=== PATIENT | female | born 1995 | race Caucasian/White ===

== ENCOUNTER 2020-04-24 10:25 | Day surgery (SDC) | payer OTHER ==
[2020-04-17 11:21] LABS: BASOPHILS % (AUTO) 0.4 % (0-1); EOSINOPHILS # (AUTO) 0.2 X10'3 (0-0.9); EOSINOPHILS % (AUTO) 2.9 % (0-6); LYMPHOCYTES # (AUTO) 1.9 X10'3 (1.1-4.8); MEAN CORPUSCULAR HEMOGLOBIN 30.3 PG (27.0-31.0); MEAN CORPUSCULAR HGB CONC 34.3 g/dL (33.0-36.5); MEAN CORPUSCULAR VOLUME 88.2 FL (78-98); MEAN PLATELET VOLUME 7.7 FL (7.4-10.4); MONOCYTES # (AUTO) 0.6 X10'3 (0-0.9); MONOCYTES % (AUTO) 9.3 % (2-12); NEUTROPHILS # (AUTO) 3.7 X10'3 (1.8-7.7); NEUTROPHILS % (AUTO) 57.4 % (42-75); PRE OP HEMATOCRIT 42.1 % (35.0-45.0); PRE OP HEMOGLOBIN 14.4 g/dL (12.0-16.0); PRE OP PLATELET COUNT 320 X10'3 (140-440); RED BLOOD COUNT 4.77 X10'6 (4.20-5.60); RED CELL DISTRIBUTION WIDTH 13.5 % (11.5-14.5)
[2020-04-17 11:35] LABS: HCG SERUM QL NEGATIVE
[2020-04-17 11:38] LABS: ALBUMIN 3.8 G/DL (3.4-5.0); ALBUMIN/GLOBULIN RATIO 0.9 (1.1-1.5); ALKALINE PHOSPHATASE 106 IU/L (46-116); BLOOD UREA NITROGEN 12 MG/DL (7-18); BUN/CREATININE RATIO 14.6 (6.6-38.0); CHLORIDE 105 MMOL/L (99-107); CREATININE 0.82 MG/DL (0.40-0.90); PRE OP ALT 22 U/L (30-65); PRE OP ANION GAP 11 (8-16); PRE OP AST 15 U/L (10-37); PRE OP BILIRUB, TOTAL 0.4 MG/DL (0.0-1.0); PRE OP GLUCOSE 90 MG/DL (70-104); PRE OP POTASSIUM 3.7 MMOL/L (3.4-5.1); PRE OP SODIUM 140 MMOL/L (135-145); TOTAL CARBON DIOXIDE 23.8 MMOL/L (24-32); TOTAL PROTEIN 7.9 G/DL (6.4-8.2); eGFR 87 ML/MIN
[2020-04-24] VITALS (7 sets, daily range): BP systolic 96–132; BP diastolic 59–77
[~2020-04-24] VITALS: Ht 170.2 cm; Wt 61.0 kg
[~2020-04-24 10:25] MED LIST: BUSP7.5T5 PO; [UNRECOGNIZED DRUG - CODE] PO; ceFOXitin 2GM-NS 100mL ADDvant 100 ML IV ONE; famotidine 20mg tablet PO ONE; ringers solution, lacted 1,000 ML IV SCH
[2020-04-24] MEDS ORDERED: acetaminophen 1,000mg/100ml IV 100 ML IV PRN (14:40)
[2020-04-24] MEDS ORDERED: ondansetron/PF 4mg/2ml inj IV PRN (14:40)
[2020-04-24] MEDS ORDERED: morphine 2 MG/ML inj. syringe IV PRN (14:40)
[2020-04-24] MEDS ORDERED: ringers solution, lacted 1,000 ML IV SCH (14:40)
[2020-04-24] MEDS ORDERED: morphine 4 MG/ML inj SYRINge IV PRN (14:40)
[2020-04-24] MEDS ORDERED: meperidine/PF 25mg/ml syringe IV PRN ×3 (14:40)
[2020-04-24] MEDS ORDERED: proCHLORperazine 10 MG/2 ml inj IV PRN (14:40)
[2020-04-24] MEDS ORDERED: sevoflurane 250ml liquid IH ONE (15:47)
[2020-04-24] MEDS ORDERED: fentaNYL/PF 50MCG/1 ML 2ML syringe ONE (15:54)
[2020-04-24] MEDS ORDERED: midazolam 2 mg/2 ml injection ONE (15:57)
[2020-04-24] MEDS ORDERED: LIDOcaine 1% W/epiNEPHrine 1:200,000 10ml vial ONE (16:18)
[2020-04-24] MEDS ORDERED: acetaminophen 1,000mg/100ml IV 100 ML IV ONE (16:29)
[2020-04-24] MEDS ORDERED: LIDOcaine 1%/PF 5ML 10 MG/ML VIAL ONE (16:30)
[2020-04-24] MEDS ORDERED: propofol inj 20 ML IV ONE (16:30)
[2020-04-24] MEDS ORDERED: ondansetron/PF 4mg/2ml inj ONE (16:30)
[2020-04-24] MEDS ORDERED: dexamethasone sod phosphate 4mg/ml inj. ONE (16:30)
[2020-04-24] MEDS ORDERED: oxyCODONE/APAP 5-325mg tablet PO ONE ×2 (16:50)
--- NOTE | 2020-04-24 16:50 | NUR ---
Received from OR via , accompanied by Anesthesiologist DR GARZA and report given by Anesthesiolgist. AWAKENS TO VOICE. VITALS STABLE. DRESSING DI. SWATI PAIN.
--- NOTE | 2020-04-24 17:50 | NUR ---
AWAKE AND ORIENTED. VITALS STABLE. DRESSING DI. SWATI PAIN. HOME WITH HER MOM AT THIS TIME.
== END 2020-04-24 17:50 | disposition home or self-care (01) ==
LOC: PRE-OP 10:25 → PAS 17:50
PROVIDERS: ATTEND Obstetrics & Gynecology
DX: R10.2 Pelvic and perineal pain (principal); N94.10 Unspecified dyspareunia; Q52.3 Imperforate hymen; N90.89 Other specified noninflammatory disorders of vulva and perineum; S31.41XA Laceration without foreign body of vagina and vulva, initial encounter; F32.9 Major depressive disorder, single episode, unspecified; F41.9 Anxiety disorder, unspecified; Z72.89 Other problems related to lifestyle; Z98.890 Other specified postprocedural states; Z79.899 Other long term (current) drug therapy; Z20.822 Contact with and (suspected) exposure to COVID-19; X58.XXXA Exposure to other specified factors, initial encounter; Y93.89 Activity, other specified; Y92.89 Other specified places as the place of occurrence of the external cause; Y99.8 Other external cause status
CPT/HCPCS: 36415; 56620; 56700; 80053; 82948; 84703; 85025; 86885; 86900; 86901; 87635; J0131; J0694; J1100; J2250; J2405; J2704; J3010; A4618; A7000; J7120

== ENCOUNTER 2021-09-25 23:56 | Emergency (ER) | payer SELFPAY ==
[~2021-09-25] VITALS: Ht 170.2 cm; Wt 68.2 kg
[~2021-09-25 23:56] MED LIST changes: -ceFOXitin 2GM-NS 100mL ADDvant 100 ML IV ONE; -famotidine 20mg tablet PO ONE; -ringers solution, lacted 1,000 ML IV SCH
[2021-09-26 00:04] VITALS: BP 130/89
[2021-09-26] MEDS ORDERED: neomy sulf/polymyx B sulf/HC 10ml otic suspension LEFT EAR ONE (01:00)
[2021-09-27] MEDS ORDERED: AMOX-580 PO (00:53)
[2021-09-27] MEDS ORDERED: CIPR10DR LEFT EAR (00:53)
== END 2021-09-26 01:12 | disposition home or self-care (01) ==
LOC: ER 23:56
DX: H60.502 Unspecified acute noninfective otitis externa, left ear (principal)
CPT/HCPCS: 99283

== ENCOUNTER 2021-09-27 00:13 | Emergency (ER) | payer SELFPAY ==
[~2021-09-27] VITALS: Ht 170.2 cm; Wt 68.2 kg
[2021-09-27] MEDS ORDERED: AMOX-580 PO (00:53)
[2021-09-27] MEDS ORDERED: CIPR10DR LEFT EAR (00:53)
[2021-09-27] MEDS ORDERED: ketorolac trometh. 30mg/ml inj. IM ONE (00:55)
[2021-09-27] MEDS ORDERED: amox tr/potassium clavulanate 875/125mg TAB PO ONE (00:55)
[2021-09-27 02:07] VITALS: BP 135/78
== END 2021-09-27 02:11 | disposition home or self-care (01) ==
LOC: ER 00:14
DX: H60.502 Unspecified acute noninfective otitis externa, left ear (principal); Z79.2 Long term (current) use of antibiotics; Z79.899 Other long term (current) drug therapy
CPT/HCPCS: 96372; 99283; J1885